=== PATIENT | male | born 2005 | race Caucasian/White ===

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

== ENCOUNTER 2024-06-28 21:53 | Emergency (ER) | payer SELFPAY ==
[2024-06-28 21:55] VITALS: BP 107/54; PULSE 55; RESP 20; TEMP 37; O2SAT 97; BMI 18.4
--- NOTE | 2024-06-28 21:56 | ED_ITS ---
Discharge Plan Disposition Patient Disposition: Home, Self-Care Condition: Good Prescriptions Prescriptions: New cephalexin 500 mg capsule 500 mg PO BID 5 Days Qty: 10 0RF No Action prednisone 10 MG tablet 10 mg PO BID 3 Days Qty: 6 0RF azithromycin 250 MG tablet 250 mg PO UD DOSE PK Qty: 6 0RF Rx Instructions: Take two (2) tablets today, then one (1) tablet days #2 thru #5 [id number]-umqhglmnj-PY 118 ML syrup 5 ml PO Q6HP PRN (Reason: Cough) Qty: 240 0RF ondansetron 4 MG tablet,disintegrating 4 mg PO Q8HP PRN (Reason: Nausea) Qty: 20 0RF Referrals Follow up/Referrals: Ba Lozoya MD [Primary Care Provider] - See instructions Activity Restrictions/Add. Instructions Additional Instructions/Restrictions: Follow-up with your PCP for any worsening signs or symptoms. Return to the ER for any redness drainage increasing pain loss of function etc. Clinical Impressions Clinical Impression: Puncture wound of skin from metal nail Instructions Patient Instructions: DI for Puncture Wound Print Language Print Language: Niuean Discharge ED Provider: Stevo Carbajal General Adult HPI <RICK Beck - Last Filed: 06/28/24 22:06> General Stated complaint: AO 06-28-24 nail cut finger Time Seen by Provider: 06/28/24 21:55 History of Present Illness HPI narrative: Patient presents for evaluation of a puncture wound of the left index finger. Patient was working on an old trailer and had a misbah metal nail break the skin of his interphalangeal joint of his first finger of the left hand. Patient has no loss of motion no loss of sensation no pain no redness no drainage. It happened earlier today. Patient presents at the behest of his mother for updated tetanus. Related Data Previous Rx's ?Medication ?Instructions ?Recorded ondansetron 4 mg disintegrating 4 mg PO Q8HP PRN Nausea ##20 07/20/19 tablet azithromycin 250 mg tablet 250 mg PO UD DOSE PK #6 tabs 08/31/19 iixlaskjelhwvww-hodqioaoriofwvx-UF 5 ml PO Q6HP PRN Cough ##240 08/31/19 2 mg-30 mg-10 mg/5 mL oral syrup prednisone 10 mg tablet 10 mg PO BID 3 days #6 tabs 10/07/19 cephalexin 500 mg capsule 500 mg PO BID 5 days #10 caps 06/28/24 Allergies Allergy/AdvReac Type Severity Reaction Status Date / Time No Known Allergies Allergy Verified 06/12/18 14:40 PFSH <RICK Beck - Last Filed: 06/28/24 22:06> [facility] Disclaimer: The information contained in this section may have been updated after the patient was seen, as this information can be updated by other users. Social History Smoking Status: Never smoker second hand exposure: No alcohol intake: never current occupational status: student Travel in the last 8 weeks: None household members: family housing: house <RICK Beck - Last Filed: 06/28/24 22:06> ROS Obtained: Yes Systems reviewed as appropriate & no additional complaints except as documented Physical Exam <RICK Beck - Last Filed: 06/28/24 22:06> General General appearance: alert and in no apparent distress Respiratory Respiratory exam: Present normal lung sounds bilaterally Cardiovascular Cardiovascular exam: Present regular rate and normal rhythm Expanded Upper Extremity Exam Left: Hand L/R back image: 2 1. Small superficial puncture wound at the left interphalangeal joint of digit #2 Neurological Exam Neurological exam: Present alert and oriented X3 Medical Decision Making <RICK Beck - Last Filed: 06/28/24 22:06> Osmani Inquiry Pt receiving controlled substance: No Orders (Tests/Meds): ED MEDICATIONS Generic Name Dose Route Start Last Admin Trade Name Freq PRN Reason Stop Dose Admin Cephalexin HCl 500 mg 06/28/24 21:58 Cephalexin 500mg Capsule PO 06/28/24 21:59 ONCE ONE Tetanus/Reduced Diphtheria/Acell Pertussis 0.5 ml 06/28/24 21:58 Tet/Diphth/Pert-Adult 0.5ml Syringe IM 06/28/24 21:59 .ONCE ONE Medical Decision Narrative: In summary patient is a 19-year-old male who presents to the emergency department for evaluation of nail puncture to the left index finger. Patient is hemodynamically upon arrival, afebrile. Physical exam is remarkable for a small superficial puncture at the dorsum of the hand of the left index finger at the interphalangeal joint. Patient is neurovascular intact has full range of motion no pain with range of motion no drainage. Differential diagnosis includes superficial puncture versus possible deep structure involvement. Initial workup was considered however wound is too superficial to have penetrated deeply after exam and patient has no stigmata of loss of motor or sensory or range of motion function thus further workup deferred. Given this patient was given a prescription for Keflex with first dose given here and updated his Tdap and is appropriate for discharge with strict return precautions and follow-up with his PCP. <Stevo Carbajal MD - Last Filed: 06/28/24 22:07> Orders (Tests/Meds): ED MEDICATIONS Generic Name Dose Route Start Last Admin Trade Name Freq PRN Reason Stop Dose Admin Cephalexin HCl 500 mg 06/28/24 21:58 Cephalexin 500mg Capsule PO 06/28/24 21:59 ONCE ONE Tetanus/Reduced Diphtheria/Acell Pertussis 0.5 ml 06/28/24 21:58 Tet/Diphth/Pert-Adult 0.5ml Syringe IM 06/28/24 21:59 .ONCE ONE Medical Decision Narrative: In summary patient is a 19-year-old male who presents to the emergency department for evaluation of nail puncture to the left index finger. Patient is hemodynamically upon arrival, afebrile. Physical exam is remarkable for a small superficial puncture at the dorsum of the hand of the left index finger at the interphalangeal joint. Patient is neurovascular intact has full range of motion no pain with range of motion no drainage. Differential diagnosis includes superficial puncture versus possible deep structure involvement. Initial workup was considered however wound is too superficial to have penetrated deeply after exam and patient has no stigmata of loss of motor or sensory or range of motion function thus further workup deferred. Given this patient was given a prescription for Keflex with first dose given here and updated his Tdap and is appropriate for discharge with strict return precautions and follow-up with his PCP. I was consulted by the STAN, and we discussed the complexity of the problems being addressed. I approved the treatment and management plan for this patient's care in the emergency department, thus performing a substantive portion of the medical decision making. Stevo Carbajal MD Critical Care <RICK Beck - Last Filed: 06/28/24 22:06> Critical Care Time Critical Care Time: No
[2024-06-28] MEDS: TET/DIPHTH/PERT-ADULT 0.5ML SYRINGE 0.5 ML IM (22:08)
[2024-06-28] MEDS: cephALEXin 500MG CAPSULE 500 MG PO (22:15)
[2024-06-28 22:20] VITALS: BP 110/60; PULSE 60; RESP 17; TEMP 37; O2SAT 99
== END 2024-06-28 22:20 | disposition home or self-care (01) ==
LOC: ER 22:11
PROVIDERS: Emergency Provider Emergency Medicine; PCP Family Medicine
DX: S61.231A Puncture wound without foreign body of left index finger without damage to nail, initial encounter (principal); W45.0XXA Nail entering through skin, initial encounter; Z23 Encounter for immunization
CPT/HCPCS: 90471; 90715; 99283